=== PATIENT | female | born 1950 | race Caucasian/White ===

== ENCOUNTER 2017-03-12 05:27 | Day surgery (SDC) | payer MEDICARE, BC ==
[2017-03-11 13:25] LABS: HEMATOCRIT 45.8 % (36.0-48.0); HEMOGLOBIN 15.4 g/dL (12-16); MCH 30.8 pg (26.0-34.0); MCHC 33.6 g/dL (31.0-37.0); MCV 91.6 fL (80.0-100.0); MEAN PLATELET VOLUME 9.3 fL (7.4-10.4); WBC 5.7 10x3/uL (4.8-10.8)
[~2017-03-12] VITALS: Ht 167.6 cm; Wt 50.3 kg
[~2017-03-12 05:27] MED LIST: ALENDRONATE SOD70 MG PO; FISH OIL 1,0001 CA1 PO; MULTI-DAY VITAM1 TAB PO; VITAMIN D31000 UNI2 PO
[2017-03-12 13:30] VITALS: BP 157/81; Ht 167.6 cm; Wt 50.3 kg
--- NOTE | 2017-03-12 16:45 | NUR ---
1630 BACK FROM LEFT FOOT BUNIONECTOMY. AWAKE ALERT AND DENIES PAIN. LEFT FOOT DRESSING C/D/I NO BLEEDING BOOT ON LEFT FOOT FOOT ELEVATED AND ICED.
--- NOTE | 2017-03-12 17:07 | NUR ---
1700 LEFT FOOT ELEVATED AND ICED. DENIES PAIN GOOD BLOOD RETURN TO NAIL BEDS. BOOT ON LEFT FOOT.
--- NOTE | 2017-03-12 17:44 | NUR ---
1730 IV DCD CATHETER INTACT. UP TO BR WITH ASSISTANCE AND HELP[ED DRESSED PATIENT. WENT OVER DISCHARGE INSTRUCTIONS AND SCRIPT, TOLD TO WEAR BOOT WHEN WALKING AND ELEVATE AND ICE FOOT AND KEEP DRESSING C/D/I.
--- NOTE | 2017-03-12 17:45 | NUR ---
1740 TO HOME VIA W/C WITH SPOUSE.
--- NOTE | 2017-05-06 14:50 | OP ---
PATIENT NAME: ZACK ZELAYA MEDICAL RECORD: [id number] :51 LOCATION:[facility] ADMISSION DATE: SURGEON: ERIS ARECHIGA DATE OF OPERATION: 03/12/2017 SURGEON: Eris Arechiga DPM PREOPERATIVE DIAGNOSIS: Hallux abductovalgus deformity, left foot. POSTOPERATIVE DIAGNOSIS: Hallux abductovalgus deformity, left foot. PROCEDURE: Darien bunionectomy, left foot. ANESTHESIA: General. HEMOSTASIS: Pneumatic ankle tourniquet, inflated to 250 mmHg. ESTIMATED BLOOD LOSS: Minimal. MATERIALS: One 2.5 mm [employer] screw, 3-0 Vicryl, 4-0 nylon. INJECTABLES: 20 cc of 0.5% bupivacaine plain. INDICATION: The patient has longstanding history of pain associated with bunion deformity on the left foot. She has tried wider shoes to no avail. She is here today for surgical correction. We have discussed the risks and benefits of procedure and complications were reviewed. Her questions were answered. She was appropriately consented for the above-mentioned procedure. DESCRIPTION OF PROCEDURE: The patient was brought in the operating room and placed on the operating table in supine position. A timeout was called with Dr. Arechiga, who identified the patient, the surgical site, and the surgery to be performed. Once appropriate anesthesia was obtained, the foot was prepped and draped in the usual aseptic manner. The pneumatic ankle tourniquet was inflated to 250 mmHg on the well-padded left ankle. Attention was directed to the dorsal aspect of the first metatarsophalangeal joint where a 6 cm linear incision was made. This incision was made just medial to the extensor hallucis longus tendon. This incision was deepened through soft tissue with care being taken to retract all vital neurovascular structures. All bleeders were cauterized along the way. The periosteum was then reflected from the first metatarsophalangeal joint, thus exposing the joint and the hypertrophied medial head. Next, utilizing a sagittal saw, all hypertrophied medial eminence was resected. Utilizing a sagittal saw, a V-shaped osteotomy was created in the head of the first metatarsal. This was a vzduiru-gmy-klgepht osteotomy with the apex oriented distally. The capital fragment was then shifted laterally and impacted upon the first metatarsal shaft. Next, utilizing wash mill operator's recommended technique, one 2.5mm screw was placed across the osteotomy. The surgical site was then irrigated with copious amounts of normal sterile saline via bulb syringe. Attention was then directed to the first intermetatarsal space where the fibular sesamoid was identified and sharply transected. The fibular sesamoidal ligament was also released and the conjoined tendon to the adductor hallucis was released from the base of the proximal OPERATIVE REPORT [id number] ZACK ZELAYA phalanx. The surgical site was then irrigated with copious amounts of normal sterile saline via bulb syringe. The periosteum was reapproximated and coapted utilizing 3-0 Vicryl. The subq was reapproximated and coapted utilizing 3-0 Vicryl. The skin was reapproximated and coapted utilizing 4-0 nylon. A dressing consisting of Xeroform, 4 x 4's, Kerlix, and an Wong bandage was applied to the left foot. The pneumatic ankle tourniquet was deflated and cap refill time was immediate to all digits of the left foot. The patient tolerated the procedure and anesthesia well. She left the operating room with vital signs stable and capillary refill time intact. The patient was discharged home with instructions to ice and elevate the left foot. She was dispensed a boot to further offload the foot. She has my cell phone number for any after hour difficulties and there were no complications with this procedure. TRANSINT:[id number] Voice Confirmation ID: [id number] DOCUMENT ID: [id number] ERIS ARECHIGA at 1450 CC: [id number] DICTATION DATE: 03/12/17 1627 SEASONER HAND: 03/12/17 1731 [facility] 03/12/17 [id number] [place] [address]
== END 2017-03-12 17:40 | disposition home or self-care (01) ==
LOC: D.OPS 05:27 → D.PAN 13:30 → D.OPS 13:30
PROVIDERS: Anesthesiology
DX: M20.12 Hallux valgus (acquired), left foot (principal); Z01.812 Encounter for preprocedural laboratory examination

== ENCOUNTER 2017-10-08 10:17 | Day surgery (SDC) | payer OTHER ==
[~2017-10-08] VITALS: Ht 167.6 cm; Wt 52.6 kg
--- NOTE | ~2017-10-08 | OP ---
PATIENT NAME: ZACK ZELAYA MEDICAL RECORD: [id number] :51 [facility] DATE: SURGEON: ERIS ARECHIGA DATE OF OPERATION: 10/08/2017 SURGEON: Eris Arechiga DPM PREOPERATIVE DIAGNOSIS: Hallux abductovalgus, right foot. POSTOPERATIVE DIAGNOSIS: Hallux abductovalgus, right foot. PROCEDURE: Darien-Candido bunionectomy, right foot. ANESTHESIA: General. HEMOSTASIS: Pneumatic ankle tourniquet inflated to 250 mmHg for 37 minutes. ESTIMATED BLOOD LOSS: Minimal. MATERIALS: One 2.5 mm headless [employer] screw and one Gen110 Quick Staple. INJECTABLES: 20 cc of 0.5% bupivacaine plain. The patient has longstanding history of pain associated with a bunion deformity. She has tried wider shoes to no avail. She is here today for surgical correction of this chronically painful condition. We have reviewed the risks and benefits of the procedure, complications were discussed, all questions were answered. DESCRIPTION OF PROCEDURE: The patient was brought to the operating room and placed on the operating table in supine position. A timeout was called with Dr. Arechiga, identified the patient, the surgical site, and the surgery to be performed. Once appropriate anesthesia was obtained, the foot was prepped and draped in the usual aseptic manner. The pneumatic ankle tourniquet was inflated to 250 mmHg on the well-padded right ankle. Attention was directed to the dorsal aspect of the right foot where a 6-cm linear incision was made just medial to the extensor hallucis longus tendon. This incision was carried deep to soft tissue with care being taken to retract all vital neurovascular structures. All bleeders were cauterized along the way. The first intermetatarsal space was entered through this incision utilizing both sharp and blunt dissection. The conjoined tendon of the adductor hallucis muscle was noted was transected at the base of the proximal phalanx. Attention was then directed further proximally to the level of the fibular sesamoidal ligament and it too was sharply transected. Next, the attention was directed to the dorsal aspect of the first metatarsophalangeal joint where the periosteum was reflected from both the head of the first metatarsal and the base of proximal phalanx. Utilizing a sagittal saw, the hypertrophied medial eminence of the first metatarsal was resected. Utilizing a sagittal saw, a V-shaped osteotomy was then created in the head of the first metatarsal. This was a through and through osteotomy with the apex oriented distally. The capital fragment was then translocated laterally and impacted upon the first metatarsal OPERATIVE REPORT [id number] AZCK ZELAYA. Next, utilizing upper shaper's recommended technique, one 2.5-mm screw was placed across the osteotomy. Excellent fixation was noted after placement of the screw. All remaining over hanging bone from the medial aspect of the first metatarsal shaft was removed with the sagittal saw. Attention was then directed to the base of the proximal phalanx where a V-shaped osteotomy was created, utilizing the sagittal saw. The apex was oriented laterally with this osteotomy. The osteotomy was reduced and fixation was obtained utilizing one Gen110 Quick Staple. Excellent fixation was noted after utilization of the staple. The surgical site was then irrigated with copious amounts of normal sterile saline via bulb syringe. Any sharp bony prominences were then smoothed with a rasp. The periosteum was then reapproximated and coapted utilizing 3-0 Vicryl. The subQ was then reapproximated and coapted using 4-0 Vicryl. The skin was then reapproximated and coapted using 4-0 nylon. A further dressing consisting of Xeroform, 4 x 4's, Kerlix, and Wong bandage was applied to the involved foot. The pneumatic ankle tourniquet was deflated and cap refill time is immediate to all digits of the right foot. The patient was discharged home with instructions to ice and elevate the right foot. She has a boot from previous foot surgery to help offload the foot as well. She was provided with my cell phone number for any after difficulties and there were no complications with this procedure. TRANSINT:[id number] Voice Confirmation ID: [id number] DOCUMENT ID: [id number] ERIS ARECHIGA at 1126 CC: [id number] DICTATION DATE: 10/09/17 1229 MEMBER SERVICE REPRESENTATIVE: 10/09/17 1301 [facility] 10/08/17 [place] [address]
[~2017-10-08 10:17] MED LIST changes: +PROLIA INJ 660 MG/M1 IJ
[2017-10-08 10:55] LABS: HEMATOCRIT 41.7 % (36.0-48.0); HEMOGLOBIN 14.2 g/dL (12-16); MCH 31.5 pg (26.0-34.0); MCHC 34.1 g/dL (31.0-37.0); MCV 92.5 fL (80.0-100.0); MEAN PLATELET VOLUME 9.2 fL (7.4-10.4); RBC 4.51 10x6/uL (4.00-5.40); RDW 12.9 % (11.5-14.5)
[2017-10-08 12:25] VITALS: BP 142/70; Ht 167.6 cm; Wt 52.6 kg
== END 2017-10-08 15:55 | disposition home or self-care (01) ==
LOC: D.OPS 10:17 → D.PAN 12:15 → D.OPS 12:15 → D.PAN 12:30 → D.OPS 13:00 → D.PAN 13:00 → D.OPS 15:55
PROVIDERS: Anesthesiology
DX: M20.11 Hallux valgus (acquired), right foot (principal); Z01.812 Encounter for preprocedural laboratory examination

== ENCOUNTER 2019-08-02 07:57 | Day surgery (SDC) | payer OTHER ==
[~2019-08-02] VITALS: Ht 167.6 cm; Wt 53.1 kg
[2019-08-02 08:29] LABS: HEMATOCRIT 44.8 % (36.0-48.0); HEMOGLOBIN 14.9 g/dL (12-16); MCH 31.5 pg (26.0-34.0); MCHC 33.3 g/dL (31.0-37.0); MCV 94.7 fL (80.0-100.0); MEAN PLATELET VOLUME 8.8 fL (7.4-10.4); RBC 4.73 10x6/uL (4.00-5.40); RDW 12.8 % (11.5-14.5); WBC 5.5 10x3/uL (4.8-10.8)
[2019-08-02] MEDS ORDERED: VALIUM5 MG PO (08:34)
[2019-08-02 08:45] VITALS: BP 166/99; Ht 167.6 cm; Wt 53.1 kg
[2019-08-02] MEDS ORDERED: HYDROCODON-ACE1 EA10 PO (12:02)
--- NOTE | 2019-08-02 15:25 | OP ---
PATIENT NAME: ZACK OSBORNE MEDICAL RECORD: [id number] :52 LOCATION:[facility] ADMISSION DATE: SURGEON: FREDDIE JACOBSON DO DATE OF OPERATION: 08/02/2019 PROCEDURE PERFORMED: Right knee arthroscopy with partial medial and partial lateral meniscectomies. 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 INDICATIONS: Ms. Osborne is a 69-year-old female who has been walking quite a bit and recently has had increasing right knee pain, mostly catching and popping and locking, having meniscal symptoms. MRI was done, which showed a medial meniscal tear. I informed her that we could trim that out, but she is 69 and maybe have some underlying arthritis, which indeed was the case that we would do our best to get her back to walking. She was aware of that and aware of the risks and benefits including infection, bleeding, damage to nerves and vessels, need for further surgery, retear of the meniscus and blood clots, and even . She signed the consent. SURGEON: Freddie Jacobson DO DESCRIPTION OF PROCEDURE: The patient was taken to the operative suite, laid in supine position, given general anesthetic and LMA was placed. She was given a gram of Ancef preoperatively. The right lower extremity was prepped and draped in sterile fashion. A timeout was performed, everyone was in agreeance with the correct side, site, patient and procedure. I then began by making the incision over the anterolateral aspect of the knee for the lateral portal. Trocar was then entered in the knee. I then turned the water on and camera inserted in the knee. There was no loose body to the suprapatellar pouch or lateral medial gutters. The knee was then flexed and the medial compartment was entered, the medial portal was then established using 18-gauge spinal needle and 11-blade scalpel. A probe was then brought in and the meniscal tear was seen in the posterior horn of the medial meniscus. This was trimmed out with a biter and shaver as well as the grade III chondromalacia of the medial femoral condyle. Any loose endings were shaved off. I then inspected the ACL and it was in good repair. The probe was then parked in the notch and then the knee was pollyo-ki-vsqk'ed and I saw fraying and tears of the lateral meniscus and this was trimmed out with a shaver back to a stable point. At that point, the camera was put back up under the patella and a grade III chondromalacia was seen in the patella. Shaver was then brought in, cleaned out any loose fragments off of that. I then turned off the water and turned on the suction and excess fluid was removed from the knee. I then closed the portals with 4-0 Monocryl in an inverted interrupted fashion. Steri-Strips, Adaptic, 4 x 4's, ABD, Webril, Wong wrap and JOSH stocking was then placed on the patient. She was awakened and taken to recovery in stable condition. ESTIMATED BLOOD LOSS: Minimal. COMPLICATIONS: None. OPERATIVE REPORT [id number] ZACK OSBORNE TRANSINT:[id number] Voice Confirmation ID: [id number] DOCUMENT ID: [id number] FREDDIE JACOBSON DO at 1525 CC: FAVIO CONKLIN [id number] DICTATION DATE: 08/02/19 1213 CHEMICAL EQUIPMENT SALES ENGINEER: 08/02/19 1517 [facility] [address] [id number]
== END 2019-08-02 13:35 | disposition home or self-care (01) ==
LOC: D.OPS 07:57 → D.PAN 10:15 → D.OPS 10:15
PROVIDERS: Anesthesiology; ATTEND Orthopaedic Surgery
DX: S83.241A Other tear of medial meniscus, current injury, right knee, initial encounter (principal); S83.281A Other tear of lateral meniscus, current injury, right knee, initial encounter; X58.XXXA Exposure to other specified factors, initial encounter; M22.41 Chondromalacia patellae, right knee

== ENCOUNTER 2019-12-27 07:26 | Day surgery (SDC) | payer OTHER ==
[~2019-12-27] VITALS: Ht 167.6 cm; Wt 53.1 kg
[~2019-12-27 07:26] MED LIST changes: +HYDROCODON-ACE1 EA10 PO; +PERCOCET 7.5/321 TAB PO; +VALIUM5 MG PO
[2019-12-27 07:47] LABS: HEMATOCRIT 42.7 % (36.0-48.0); HEMOGLOBIN 14.2 g/dL (12-16); MCH 32.4 pg (26.0-34.0); MCHC 33.3 g/dL (31.0-37.0); MCV 97.5 fL (80.0-100.0); MEAN PLATELET VOLUME 8.9 fL (7.4-10.4); RBC 4.38 10x6/uL (4.00-5.40); RDW 12.3 % (11.5-14.5); WBC 6.2 10x3/uL (4.8-10.8)
[2019-12-27 08:15] VITALS: BP 170/87; Ht 167.6 cm; Wt 53.1 kg
--- NOTE | 2019-12-27 12:11 | NUR ---
DENIES NEEDS/PAIN AT THIS TIME.
--- NOTE | 2019-12-27 14:02 | NUR ---
1235 DRESSED. AWAKE & ALERT. RUE IN SLING. FINGERTIPS, RIGHT HAND, PINK & WARM TO TOUCH. DANIA WITH RAPID CAPILLARY REFILL. WIGGLES FINGERS ON DEMAND. GIVEN DISCHARGE INFORMATION INCLUDING MED REC, RTC. APPT. DR. JACOBSON'S POST OP INSTRUCTION SHEET, & [facility] OPS D/C INSTRUCTION SHEET. PT VOICED UNDERSTANDING. TO PRIVATE CAR PER WHEELCHAIR BY STAFF. HOME WITH MR. ZELAYA. Catalina WILKINSON R.N.
--- NOTE | 2019-12-28 08:57 | OP ---
PATIENT NAME: ZACK OSBORNE MEDICAL RECORD: [id number] :52 LOCATION:[facility] ADMISSION DATE: SURGEON: FREDDIE JACOBSON DO DATE OF OPERATION: 12/27/2019 PROCEDURE PERFORMED: Right elbow olecranon open reduction and internal fixation. PREOPERATIVE DIAGNOSIS: Right olecranon displaced fracture. POSTOPERATIVE DIAGNOSIS: Right olecranon displaced fracture. INDICATIONS: Ms. Osborne is a 69-year-old female well known to me who fell yesterday after catching her right shoe onto her right elbow. She went to her primary care and got x-rays and noted the fracture right through the articular surface of the olecranon. She came to my office yesterday. She wanted something done surgically as I informed her this would not heal well on its own as it was displaced into the articular surface. I informed her of the risks including infection, bleeding, damage to nerves and vessels in the area, continued pain, loss of range of motion of the elbow, failure of fixation, need for further surgery and she signed the consent. SURGEON: Freddie Jacobson DO DESCRIPTION OF PROCEDURE: The patient was taken to the operative suite, laid in supine position after given a block by anesthesia in the preoperative area, given a gram of Ancef preoperatively. The patient was then sedated and LMA was placed. The right upper extremity was then prepped and draped in sterile fashion. A time-out was performed and everyone was in agreement with the correct site, side, patient, and procedure. I then exsanguinated the right upper extremity with an Esmarch and tourniquet was inflated to 250 mmHg, was up for 27 minutes. I then made an incision along the posterior aspect of the elbow, curving radially over the olecranon process. I made careful dissection down to the fracture, cleaned it out, reduced it, held it in place with K wires, and put on the plate. Once the plate was in good position and fixed in position with 2 K-wires, I then put 2 screws then in the proximal portion, locking screws, and then a compression thermoscrew operator the shaft, compressing the fracture nicely. I then put in a compression screw across the proximal fracture into the distal part across the fracture site. I then locked 3 more screws distally. I then got x-rays confirming good position on AP and lateral and then the tourniquet was let down. Any bleeding was picked up with pickup and Bovie and then irrigated and closed by Adrienne Cabral, certified surgical veterinarian assistant, with 2-0 Vicryl in inverted interrupted fashion and then a ZipLine placed on the elbow. She was then dressed with Adaptic, 4 x 4, ABD, cast padding and a posterior splint was applied and secured with an Wong wrap. She was awakened and taken to recovery in stable condition. BLOOD LOSS: Minimal. COMPLICATIONS: None. NTS:[id number] Voice Confirmation ID: [id number] DOCUMENT ID: [id number] OPERATIVE REPORT [id number] ZACK OSBORNE MICHAEL D, DO at 0857 CC: [id number] DICTATION DATE: 12/27/19 1056 ORTHOPAEDIC SURGEON: 12/27/192002 [facility] 12/27/19 [facility] [address] [place] [address]
== END 2019-12-27 12:35 | disposition home or self-care (01) ==
LOC: D.OPS 07:26 → D.PAN 09:45 → D.OPS 12:35 → D.PAN 15:45 → D.OPS 15:45
PROVIDERS: Anesthesiology; ATTEND Orthopaedic Surgery
DX: S52.021A Displaced fracture of olecranon process without intraarticular extension of right ulna, initial encounter for closed fracture (principal); X58.XXXA Exposure to other specified factors, initial encounter

== ENCOUNTER → 2020-06-11 15:34 | Outpatient (CLI) | payer OTHER ==
[2019-12-27 08:15] VITALS: BMI 18.9
== END | disposition home or self-care (01) ==
LOC: D.LABREF 15:34
PROVIDERS: ATTEND Orthopaedic Surgery
DX: M17.11 Unilateral primary osteoarthritis, right knee (principal)

== ENCOUNTER 2020-06-13 13:00 | Observation (INO) | payer OTHER ==
[~2020-06-13] VITALS: Ht 167.6 cm; Wt 53.1 kg
[2020-07-11 13:37] LABS: BASOPHILS 0.6 % (0-2); EOSINOPHILS 2.5 % (0-7); HEMATOCRIT 42.9 % (36.0-48.0); HEMOGLOBIN 14.2 g/dL (12-16); IMMATURE GRANULOCYTES 0.2 % (0-5); LYMPHOCYTE ABS# 1.68 10x3/uL (1.18-3.74); LYMPHOCYTES 32.9 % (15-50); MCH 31.8 pg (26.0-34.0); MCHC 33.1 g/dL (31.0-37.0); MCV 96.2 fL (80.0-100.0); MONOCYTES 6.3 % (2-11); NEUTROPHIL ABS# 2.94 10x3/uL (1.56-6.13); NEUTROPHILS 57.5 % (40-80); RBC 4.46 10x6/uL (4.00-5.40); RDW 12.4 % (11.5-14.5); WBC 5.1 10x3/uL (4.8-10.8)
[2020-07-11 13:46] LABS: ANION GAP 9.7 mmol/L (8-16); CALCIUM 8.9 mg/dL (8.5-10.1); PLATELET COUNT 283 10x3/uL (130-400); POTASSIUM - SERUM 3.7 mmol/L (3.5-5.1)
[2020-07-11 13:54] LABS: APTT 28.6 SECONDS (22.8-39.4); BILIRUBIN NEGATIVE (NEGATIVE); INR 1.01 (0.85-1.17); KETONE NEGATIVE (NEGATIVE); NITRITE NEGATIVE (NEGATIVE); PROTIME 12.3 SECONDS (11.6-15.0); UROBILINOGEN NORMAL mg/dL (< 2)
[2020-07-17] VITALS (14 sets, daily range): BP systolic 114–151; BP diastolic 58–90; BMI 18.9
--- NOTE | 2020-07-17 10:17 | NUR ---
CAUTERY PAD PLACED ON LEFT THIGH. PLASMA BLADE USED ON SETTING 6/8. AQUAMANTYS USED ON SETTING 170. CAUTERY PAD LOT#[id number] EXP. 12/04/2021
--- NOTE | 2020-07-17 15:24 | OP ---
PATIENT NAME: ZACK OSBORNE MEDICAL RECORD: [id number] :51 LOCATION:[facility]08 ADMISSION DATE:07/17/20 SURGEON: FREDDIE JACOBSON DO DATE OF OPERATION: 07/17/2020 PROCEDURE PERFORMED: Right total knee arthroplasty. PREOPERATIVE DIAGNOSIS: Right knee osteoarthritis. POSTOPERATIVE DIAGNOSIS: Right knee osteoarthritis. INDICATIONS: Ms. Osboren is a 70-year-old female who has had right knee pain for quite some time. I scoped her knee a few years ago and she has had trouble since. She does have some chondromalacia on the knee scope. She wanted something done surgically. She has tried all manner of nonoperative treatment including injections and physical therapy for her knee pain and she wanted something done to alleviate the pain as it was affecting her activities of daily living. She was aware of the risk of this including infection, bleeding, damage to nerves or vessels, need for further surgery, continued pain, arthrofibrosis of the knee, failure of implants, fracture, blood clots and even and she signed the consent. SURGEON: Freddie Jacobson DO DESCRIPTION OF PROCEDURE: The patient was taken to the operative suite. After getting a block by anesthesia, laid in supine position, given general anesthetic and LMA was placed. She was given 1 gram of Ancef, 80 mg of gentamicin and a gram of TXA. The right lower extremity was then prepped and draped in sterile fashion. A timeout was performed and everyone was in agreeance with the correct side, site, patient and procedure. I then began by marking out the incision of the anterior knee, covered in Ioban. I then made an incision over the marked out incision with a #10 blade scalpel, made careful dissection down to the capsule. We used a fresh 10-blade. Using medial parapatellar approach, opened up the joint, coagulating any bleeding with Aquamantys as we went through. I then everted the patella and milled it down, removed part of the fat pad. I then flexed up the femur and drilled into the femoral canal and irrigated it out and then used the distal femur cutting guide intramedullary and cut and pinned it in place and then cut the distal femur and then exposed the tibia, cut the tibia off the lateral side due to it being deeper. She had more cartilage loss on the lateral side and cut the tibia, brought the knee in extension and the 10 extension block, fit well. I removed the menisci also and coagulated any bleeding. We then flexed the knee up and sized the femur to be a 7. I used the 4-in-1 cutting block and used yeny wing first to assure there was no notching. I then cut through the 4-in-1 cutting block. I then exposed the tibia, sized it to be a D, pinned it into place and impacted on the femoral trial, put in a 10 and then 11-poly in between and fit very well and had good varus valgus stress, stability and flexion and extension. I then drilled lug holes on the femur and drilled the holes for the patella, drilled, reamed and punched the tibia. I then irrigated out the tibia and put extra holes in it on the surface and then mixed the cement, put in the tibia on the implant, impacted into place, removing the excess cement and then impacted the femur on. I then put the 11-poly in between, brought the knee in extension, irrigated out the patella, put the cement in the patella holes and on the patellar implant, squeezed into place, removed excess cement from that. I then put in 10% povidone iodine, 500 mL of normal saline solution and let it sit for a couple of minutes, irrigated out OPERATIVE REPORT [id number] ZACK OSBORNE with a liter of normal saline. I then used joint cocktail and irrigated around the periosteum and into the quad muscles. Then, once the cement had dried, we removed the patellar squeezer and trialled, the 11 fit very well, had good stability to varus valgus stress. I then put in the 11 medial congruent bearing and again fit very well and squeezed it into place and had good stability in extension and flexion with varus and valgus stress. I then put in Kary and vancomycin and tobramycin powder and closed the capsule with #1 Vicryl in a logxsw-jt-jcoxa fashion. Magno Haynes, certified surgical medical assistant prn, closed over that with capsule with Stratafix #1 in a running stitch. He then closed the skin with 2-0 Vicryl in inverted interrupted fashion. We then placed a ZipLine on the skin and dressed with Adaptic, 4 x 4s, ABD and cast padding and 6-inch Wong and JOSH hose stocking up to the knee. She was awakened and taken to recovery in stable condition. Blood loss was approximately 200 mL. COMPLICATIONS: None. TRANSINT:[id number] Voice Confirmation ID: [id number] DOCUMENT ID: [id number] FREDDIE JACOBSON DO at 1524 CC: [id number] DICTATION DATE: 07/17/20 1125 SHIP PILOT DISPATCHER: 07/17/20 1452 ADM IN [facility] [address] [place] [address]
[2020-07-17 16:09] LABS: BASOPHILS 0.1 % (0-2); EOSINOPHILS 0 % (0-7); HEMOGLOBIN 13.1 g/dL (12-16); IMMATURE GRANULOCYTES 0.1 % (0-5); LYMPHOCYTE ABS# 0.32 10x3/uL (1.18-3.74); LYMPHOCYTES 3.7 % (15-50); MCH 32.2 pg (26.0-34.0); MCHC 33.6 g/dL (31.0-37.0); MCV 95.8 fL (80.0-100.0); MEAN PLATELET VOLUME 9.2 fL (7.4-10.4); MONOCYTES 0.7 % (2-11); NEUTROPHIL ABS# 8.24 10x3/uL (1.56-6.13); NEUTROPHILS 95.4 % (40-80); RBC 4.07 10x6/uL (4.00-5.40); RDW 12.4 % (11.5-14.5); WBC 8.6 10x3/uL (4.8-10.8)
[2020-07-17 16:26] LABS: PLATELET COUNT 225 10x3/uL (130-400)
[2020-07-17 16:47] LABS: ALBUMIN 3.6 g/dL (3.4-5.0); ALKALINE PHOSPHATASE 61 U/L (30-120); ALT (SGPT) 31 U/L (10-68); BILIRUBIN - TOTAL 0.42 mg/dL (0.2-1.3); CALC OSMOLALITY 282 mosm/kg (275-300); CALCIUM 7.9 mg/dL (8.5-10.1); CHLORIDE - SERUM 103 mmol/L (98-107); CREATININE - SERUM 0.7 mg/dL (0.6-1.3); GLUCOSE 187 mg/dL (74-106); POTASSIUM - SERUM 4.7 mmol/L (3.5-5.1); PROTEIN - SERUM 6.2 g/dL (6.4-8.2); SODIUM 138 mmol/L (136-145); UREA NITROGEN 18 mg/dL (7-18); eGFR NON AFRICAN AMERICAN 88 mL/min (90-120)
--- NOTE | 2020-07-17 20:00 | NUR ---
ALERT RESTING IN BED CPM IN USE , DENIES PAIN OR NEEDS AT THIS TIME, SEE SHIFT ASSESSMENT, CALL LIGHT IN EACH
[2020-07-18] VITALS: BP 128/62
[2020-07-18 04:00] VITALS: BP 122/68
[2020-07-18 07:53] LABS: BASOPHILS 0.1 % (0-2); EOSINOPHILS 0 % (0-7); HEMATOCRIT 35.6 % (36.0-48.0); HEMOGLOBIN 11.7 g/dL (12-16); IMMATURE GRANULOCYTES 0.3 % (0-5); LYMPHOCYTE ABS# 0.83 10x3/uL (1.18-3.74); LYMPHOCYTES 10.6 % (15-50); MCH 31.2 pg (26.0-34.0); MCHC 32.9 g/dL (31.0-37.0); MCV 94.9 fL (80.0-100.0); MEAN PLATELET VOLUME 9.5 fL (7.4-10.4); NEUTROPHIL ABS# 6.12 10x3/uL (1.56-6.13); PLATELET COUNT 254 10x3/uL (130-400); RBC 3.75 10x6/uL (4.00-5.40); RDW 12.3 % (11.5-14.5); WBC 7.8 10x3/uL (4.8-10.8)
[2020-07-18 08:08] LABS: ALBUMIN 3.1 g/dL (3.4-5.0); ALKALINE PHOSPHATASE 53 U/L (30-120); ALT (SGPT) 27 U/L (10-68); BILIRUBIN - TOTAL 0.65 mg/dL (0.2-1.3); CARBON DIOXIDE 26.9 mmol/L (21.0-32.0); CHLORIDE - SERUM 105 mmol/L (98-107); CREATININE - SERUM 0.7 mg/dL (0.6-1.3); POTASSIUM - SERUM 4.1 mmol/L (3.5-5.1); PROTEIN - SERUM 5.7 g/dL (6.4-8.2); SODIUM 140 mmol/L (136-145); eGFR NON AFRICAN AMERICAN 88 mL/min (90-120)
[2020-07-18 08:09] LABS: CALC OSMOLALITY 275 mosm/kg (275-300); GLUCOSE 65 mg/dL (74-106); UREA NITROGEN 11 mg/dL (7-18)
--- NOTE | 2020-07-18 08:18 | MORECARE ---
CASE MANAGEMENT DISCHARGE SUMMARY PATIENT: ZACK ZELAYA UNIT: [id number] ADM DATE: 07/17/20 AGE: 70 : 51 SEX: F ROOM/BED: D.1208 AUTHOR: MICHELLE,DIANA PHYSICIAN: REFERRING PHYSICIAN: BRAIN JACOBSON DO DATE OF SERVICE: 07/18/20 Case Management Discharge Planning Summary COMMENTS ENTERED DATE: 07/17/20 17:10 CT COMMENT TYPE: Discharge Planning REVIEWER: Chon Pop Late Entry for 1550. Attempted to serve WALKER. Patient refused to sign and called her . Patient's would not listen to CM, stating that CM did not know anything about Medicare Advantage. CM attempted to explain that Medicare Advantage is a part of Medicare and as such, the WALKER notification was necessary. Patient's became agitated and refused to speak to CM further and reiterated his belief that CM was not knowledgeable enough to intelligently converse with him about Medicare Advantage programs. Patient's then began to explain Medicare Advantage and began a recount information that was given him that the patient's stay was paid for this night. CM did not dispute what he had been told. CM did attempt to explain what the WALKER is and attempted to read the verbiage of the notification. Patient's verbal demeanor was belligerent and communication ceased. Patient refused to sign WALKER. A copy of the WALKER was left with the patient to read and an unsigned copy was placed in the chart. CTP REVIEW SUMMARY ANTICIPATED D/C DATE: EXPECTED LOS : CASE STATUS: DCP Initiated INITIAL REVIEW: 07/18/2020 INITIAL REVIEWER: Marlys Alejandro FINAL DISCHARGE DISPOSITION: : FINAL REVIEWER: FINAL REVIEW DATE: DCP Focus Questions & Answers DCP Screen QUESTION: ANSWER High Risk Factors: : None Walking limitation: Patient stated self rated walking limitation present? : Yes Age: : 65 - 80 Prior living environment: : Lives with others Disability ranking: : Grade 1: No significant disability DCP Evaluation QUESTION: ANSWER Patient's ability to cope with chronic illness : d. No chronic illness Would patient like to participate in any Care Coordination programs (if applicable): : Not applicable Mental health screen: : No mental health history DCP Re-evaluation QUESTION: ANSWER Would patient like to participate in any Care Coordination programs (if applicable): : Not applicable PATIENT: ZACK ZELAYA ENCOUNTER: [id number] MEDICAL RECORD#: [id number] ADMISSION DATE: 07/17/2020 DISCHARGE DATE: ATTENDING MD: BRAIN MCCLENDON : AGE: 70 MARITAL STATUS: M DC PLAN ID: [id number] FACILITY: [facility] PRINTED ON: 07/18/20 8:18 CT All edits/amendments must be made on the electronic document DICTATION DATE: 07/18/20817 RESERVES CLERK: DM 07/18/20817 RPT#: [id number] DC DATE: STATUS: ADM IN [facility] [address] [place] [address] END OF REPORT
--- NOTE | 2020-07-18 08:29 | MORECARE ---
CASE MANAGEMENT DISCHARGE SUMMARY PATIENT: ZACK OSBORNE UNIT: [id number] ADM DATE: 07/17/20 AGE: 70 : 52 SEX: F ROOM/BED: D.1208 AUTHOR: DIANA MARTINEZ PHYSICIAN: REFERRING PHYSICIAN: BRAIN JACOBSON DO DATE OF SERVICE: 07/18/20 Case Management Discharge Planning Summary COMMENTS ENTERED DATE: 07/17/20 17:10 CT COMMENT TYPE: Discharge Planning REVIEWER: Chon Pop Late Entry for 1550. Attempted to serve WALKER. Patient refused to sign and called her . Patient's would not listen to CM, stating that CM did not know anything about Medicare Advantage. CM attempted to explain that Medicare Advantage is a part of Medicare and as such, the WALKER notification was necessary. Patient's became agitated and refused to speak to CM further and reiterated his belief that CM was not knowledgeable enough to intelligently converse with him about Medicare Advantage programs. Patient's then began to explain Medicare Advantage and began a recount information that was given him that the patient's stay was paid for this night. CM did not dispute what he had been told. CM did attempt to explain what the WALKER is and attempted to read the verbiage of the notification. Patient's verbal demeanor was belligerent and communication ceased. Patient refused to sign WALKER. A copy of the WALKER was left with the patient to read and an unsigned copy was placed in the chart. DCP REVIEW SUMMARY ANTICIPATED D/C DATE: EXPECTED LOS : CASE STATUS: DCP Initiated INITIAL REVIEW: 07/18/2020 INITIAL REVIEWER: Marlys Alejandro FINAL DISCHARGE DISPOSITION: : FINAL REVIEWER: FINAL REVIEW DATE: DCP Focus Questions & Answers DCP Screen QUESTION: ANSWER High Risk Factors: : None Walking limitation: Patient stated self rated walking limitation present? : Yes Age: : 65 - 80 Prior living environment: : Lives with others Disability ranking: : Grade 1: No significant disability DCP Evaluation QUESTION: ANSWER Patient and/or caregiver agree upon recommended discharge plan? : Yes Patient's current cognitive status: : *Oriented to person, place, situation, time and present Patient gives permission to discuss discharge plans with: (name, relationship and number) : Kristina Osborne - spouse - [phone] Patient's ability to cope with chronic illness : d. No chronic illness Does the patient have the ability to pay for or attain post discharge needs / services? : Yes Functional screen assessment: : No issues identified Physical Status: : Independent with ADL's Equipment needed for post hospitalization: : None Is there a likelihood that the patient will require additional services to return to the preadmission environment? : Yes Living Arrangements: : Home with Spouse/Significant Other Results of this evaluation have been discussed with: : Patient Patient with capacity for self-care or can be cared for in same environment as prior to hospitalization? : Yes Baseline cognitive status: : *Oriented to person, place, situation, time and present Physical environment modification needed / anticipated for discharge: : No Medication Management: : Patient states can afford medications Planned post hospital services available for patient? : Yes Pharmacy name(s): : [facility] [place] [facility] Does Patient have transportation to get home and to follow-up medical appointments when discharged from the hospital? : Yes Comments: : to transport to OP PT and home Would patient like to participate in any Care Coordination programs (if applicable): : Not applicable Other Care Coordination programs/comments: : OP PT set up at [facility] Does the patient have electricity at home? : Yes Does the patient have running water in their house? : Yes Equipment in use: : Walker - Rolling Equipment in use: : Other Other Equipment comments: : CPM Equipment agency name and contact information: : [employer] ? Mental health screen: : No mental health history Abuse/Neglect: : None Resources / Services in place: : None DCP Re-evaluation QUESTION: ANSWER Would patient like to participate in any Care Coordination programs (if applicable): : Not applicable PATIENT: ZACK OSBORNE ENCOUNTER: [id number] MEDICAL RECORD#: [id number] ADMISSION DATE: 07/17/2020 DISCHARGE DATE: ATTENDING MD: BRAIN MCCLENDON : AGE: 70 MARITAL STATUS: M DC PLAN ID: [id number] FACILITY: [facility] PRINTED ON: 07/18/20 8:29 CT All edits/amendments must be made on the electronic document DICTATION DATE: 07/18/20828 HORSE SHOW MANAGER: EMMANUEL 07/18/20828 RPT#: [id number] DC DATE: STATUS: ADM IN [facility] [address] [place] [address] END OF REPORT
[2020-07-18 08:32] VITALS: BP 114/59
--- NOTE | 2020-07-18 08:42 | MORECARE ---
CASE MANAGEMENT DISCHARGE SUMMARY PATIENT: ZACK OSBORNE UNIT: [id number] ADM DATE: 07/17/20 AGE: 70 : 51 SEX: F ROOM/BED: D.1208 AUTHOR: MICHELLE,DOC PHYSICIAN: REFERRING PHYSICIAN: BRAIN JACOBSON DO DATE OF SERVICE: 07/18/20 Case Management Discharge Planning Summary COMMENTS ENTERED DATE: 07/18/20 8:32 CT COMMENT TYPE: Discharge Planning REVIEWER: Marlys Alejandro CM met with patient to discuss discharge needs/planning. Patient states she lives with her in a one level home and has no steps to enter the home. Her PCP is Dr. Graham. She uses [facility], for her pharmacy. She states that she has her rolling walker here and that her CPM was already delivered to her home. She states that she has already spoken to [facility]. I called [facility] and her OP THERAPY IS SET UP FOR July AT 1330. Phone number - [phone]. Paperwork and order faxed to [phone]. CM will continue to follow and assist with discharge planning/needs. ENTERED DATE: 07/17/20 17:10 CT COMMENT TYPE: Discharge Planning REVIEWER: Chon Pop Late Entry for 1550. Attempted to serve WALKER. Patient refused to sign and called her . Patient's would not listen to CM, stating that CM did not know anything about Medicare Advantage. CM attempted to explain that Medicare Advantage is a part of Medicare and as such, the WALKER notification was necessary. Patient's became agitated and refused to speak to CM further and reiterated his belief that CM was not knowledgeable enough to intelligently converse with him about Medicare Advantage programs. Patient's then began to explain Medicare Advantage and began a recount information that was given him that the patient's stay was paid for this night. CM did not dispute what he had been told. CM did attempt to explain what the WALKER is and attempted to read the verbiage of the notification. Patient's verbal demeanor was belligerent and communication ceased. Patient refused to sign WALKER. A copy of the WALKER was left with the patient to read and an unsigned copy was placed in the chart. DCP REVIEW SUMMARY ANTICIPATED D/C DATE: EXPECTED LOS : CASE STATUS: DCP Initiated INITIAL REVIEW: 07/18/2020 INITIAL REVIEWER: Marlys Alejandro FINAL DISCHARGE DISPOSITION: : FINAL REVIEWER: FINAL REVIEW DATE: DCP Focus Questions & Answers DCP Screen QUESTION: ANSWER High Risk Factors: : None Walking limitation: Patient stated self rated walking limitation present? : Yes Age: : 65 - 80 Prior living environment: : Lives with others Disability ranking: : Grade 1: No significant disability DCP Evaluation QUESTION: ANSWER Patient and/or caregiver agree upon recommended discharge plan? : Yes Patient's current cognitive status: : *Oriented to person, place, situation, time and present Patient gives permission to discuss discharge plans with: (name, relationship and number) : Kristina Osborne [facility] - [phone] Patient's ability to cope with chronic illness : d. No chronic illness Does the patient have the ability to pay for or attain post discharge needs / services? : Yes Functional screen assessment: : No issues identified Physical Status: : Independent with ADL's Equipment needed for post hospitalization: : None Is there a likelihood that the patient will require additional services to return to the preadmission environment? : Yes Living Arrangements: : Home with Spouse/Significant Other Results of this evaluation have been discussed with: : Patient Patient with capacity for self-care or can be cared for in same environment as prior to hospitalization? : Yes Baseline cognitive status: : *Oriented to person, place, situation, time and present Physical environment modification needed / anticipated for discharge: : No Medication Management: : Patient states can afford medications Planned post hospital services available for patient? : Yes Pharmacy name(s): : [facility] Does Patient have transportation to get home and to follow-up medical appointments when discharged from the hospital? : Yes Comments: : to transport to OP PT and home Would patient like to participate in any Care Coordination programs (if applicable): : Not applicable Other Care Coordination programs/comments: : OP PT set up at [facility] Does the patient have electricity at home? : Yes Does the patient have running water in their house? : Yes Equipment in use: : Walker - Rolling Equipment in use: : Other Other Equipment comments: : CPM Equipment agency name and contact information: : [employer] ? Mental health screen: : No mental health history Abuse/Neglect: : None Resources / Services in place: : None DCP Re-evaluation QUESTION: ANSWER Would patient like to participate in any Care Coordination programs (if applicable): : Not applicable PATIENT: ZACK OSBORNE ENCOUNTER: [id number] MEDICAL RECORD#: [id number] ADMISSION DATE: 07/17/2020 DISCHARGE DATE: ATTENDING MD: BRAIN MCCLENDON : AGE: 70 MARITAL STATUS: M DC PLAN ID: [id number] FACILITY: [facility] PRINTED ON: 07/18/20 8:41 CT All edits/amendments must be made on the electronic document DICTATION DATE: 07/18/20840 JAVA SOFTWARE ARCHITECT: EMMANUEL 07/18/20840 RPT#: [id number] DC DATE: STATUS: ADM IN [facility] [address] [place] [address] END OF REPORT
--- NOTE | 2020-07-18 11:00 | NUR ---
AT 0800, PT RESTING QUIETLY, CPM REMOVED AT 0830. PT DENIES ANY NEEDS AT THIS TIME. WANTS TO KNOW WHEN PT IS COMING FOR EVAL.
--- NOTE | 2020-07-18 11:08 | NUR ---
PT REQUESTED PAIN MEDICATION AND ICE PACK.
[2020-07-18] MEDS ORDERED: ELIQUIS2.5 MG PO ×2 (12:13→12:21)
[2020-07-18] MEDS ORDERED: PERCOCET 10-321 EAC1 PO (12:13)
[2020-07-18 13:48] VITALS: Ht 167.6 cm; Wt 53.1 kg
--- NOTE | 2020-07-18 14:33 | MORECARE ---
CASE MANAGEMENT DISCHARGE SUMMARY PATIENT: ZACK OSBORNE UNIT: [id number] ADM DATE: 07/17/20 AGE: 70 : 51 SEX: F ROOM/BED: D.1208 AUTHOR: MICHELLE,DOC PHYSICIAN: REFERRING PHYSICIAN: BRAIN JACOBSON DO DATE OF SERVICE: 07/18/20 Case Management Discharge Planning Summary COMMENTS ENTERED DATE: 07/18/20 8:32 CT COMMENT TYPE: Discharge Planning REVIEWER: Marlys Alejandro CM met with patient to discuss discharge needs/planning. Patient states she lives with her in a one level home and has no steps to enter the home. Her PCP is Dr. Graham. She uses [facility], for her pharmacy. She states that she has her rolling walker here and that her CPM was already delivered to her home. She states that she has already spoken to [facility]. I called [facility] and her OP THERAPY IS SET UP FOR July AT 1330. Phone number - [phone]. Paperwork and order faxed to [phone]. CM will continue to follow and assist with discharge planning/needs. ENTERED DATE: 07/17/20 17:10 CT COMMENT TYPE: Discharge Planning REVIEWER: Chon Pop Late Entry for 1550. Attempted to serve WALKER. Patient refused to sign and called her . Patient's would not listen to CM, stating that CM did not know anything about Medicare Advantage. CM attempted to explain that Medicare Advantage is a part of Medicare and as such, the WALKER notification was necessary. Patient's became agitated and refused to speak to CM further and reiterated his belief that CM was not knowledgeable enough to intelligently converse with him about Medicare Advantage programs. Patient's then began to explain Medicare Advantage and began a recount information that was given him that the patient's stay was paid for this night. CM did not dispute what he had been told. CM did attempt to explain what the WALKER is and attempted to read the verbiage of the notification. Patient's verbal demeanor was belligerent and communication ceased. Patient refused to sign WALKER. A copy of the WALKER was left with the patient to read and an unsigned copy was placed in the chart. DCP REVIEW SUMMARY ANTICIPATED D/C DATE: EXPECTED LOS : CASE STATUS: DCP Initiated INITIAL REVIEW: 07/18/2020 INITIAL REVIEWER: Marlys Alejandro FINAL DISCHARGE DISPOSITION: : FINAL REVIEWER: FINAL REVIEW DATE: DCP Focus Questions & Answers DCP Screen QUESTION: ANSWER High Risk Factors: : None Walking limitation: Patient stated self rated walking limitation present? : Yes Age: : 65 - 80 Prior living environment: : Lives with others Disability ranking: : Grade 1: No significant disability DCP Evaluation QUESTION: ANSWER Patient and/or caregiver agree upon recommended discharge plan? : Yes Patient's current cognitive status: : *Oriented to person, place, situation, time and present Patient gives permission to discuss discharge plans with: (name, relationship and number) : Kristina Osborne [facility] - [phone] Patient's ability to cope with chronic illness : d. No chronic illness Does the patient have the ability to pay for or attain post discharge needs / services? : Yes Functional screen assessment: : No issues identified Physical Status: : Independent with ADL's Equipment needed for post hospitalization: : None Is there a likelihood that the patient will require additional services to return to the preadmission environment? : Yes Living Arrangements: : Home with Spouse/Significant Other Results of this evaluation have been discussed with: : Patient Patient with capacity for self-care or can be cared for in same environment as prior to hospitalization? : Yes Baseline cognitive status: : *Oriented to person, place, situation, time and present Physical environment modification needed / anticipated for discharge: : No Medication Management: : Patient states can afford medications Planned post hospital services available for patient? : Yes Pharmacy name(s): : [facility] Does Patient have transportation to get home and to follow-up medical appointments when discharged from the hospital? : Yes Comments: : to transport to OP PT and home Would patient like to participate in any Care Coordination programs (if applicable): : Not applicable Other Care Coordination programs/comments: : OP PT set up at [facility] Does the patient have electricity at home? : Yes Does the patient have running water in their house? : Yes Equipment in use: : Walker - Rolling Equipment in use: : Other Other Equipment comments: : CPM Equipment agency name and contact information: : [employer] ? Mental health screen: : No mental health history Abuse/Neglect: : None Resources / Services in place: : None DCP Re-evaluation QUESTION: ANSWER Would patient like to participate in any Care Coordination programs (if applicable): : Not applicable PATIENT: ZACK OSBORNE ENCOUNTER: [id number] MEDICAL RECORD#: [id number] ADMISSION DATE: 07/17/2020 DISCHARGE DATE: 07/18/2020 ATTENDING MD: BRAIN MCCLENDON : AGE: 70 MARITAL STATUS: M DC PLAN ID: [id number] FACILITY: [facility] PRINTED ON: 07/18/20 14:33 CT All edits/amendments must be made on the electronic document DICTATION DATE: 07/18/201432 BODILY INJURY ADJUSTER: EMMANUEL 07/18/20 143 RPT#: [id number] DC DATE:07/18/20 STATUS: DIS IN [facility] [address] [place] [address] END OF REPORT
== END 2020-07-18 13:45 | disposition home or self-care (01) ==
LOC: OBSVTIME 07-17 06:55 → D.SDCHOLD 07-17 06:55 → D.M3 07-17 06:55 → D.SDCHOLD 07-17 09:00 → D.M3 07-17 09:44 → D.SDCHOLD 07-17 10:15 → D.OPS 07-17 10:15 → EDSTATUS 07-17 10:15 → D.M3 07-18 13:45
PROVIDERS: Family Medicine; ADMIT Orthopaedic Surgery; ATTEND Orthopaedic Surgery
DX: M17.11 Unilateral primary osteoarthritis, right knee (principal)